=== PATIENT | female | born 1950 | race African-American/Black ===

== ENCOUNTER 2018-08-22 17:24 | Emergency (ER) | payer MEDICARE, OTHER ==
--- NOTE | 2018-08-22 18:45 | ER Document Report ---
ED Extremity Problem, Lower - General Chief Complaint: Foot Pain Stated Complaint: RIGHT FOOT PAIN Time Seen by Provider: 08/22/18 18:10 Mode of Arrival: Ambulatory Information source: Patient Notes: 67-year-old female presented to ED with complaint of pain to right foot. She states she fell about a month ago and the pain has moved from her knee to her foot. She thought she might have a blood clot in her foot but she said that her doctor told her that blood clots or not in your feet but in your legs. She asked that she please get x-ray of her foot and ankle to be sure that she did not have a broken bone. Patient denies any pain or tenderness to the calf or thigh. Patient is alert and oriented respirations was regular and unlabored and is able to walk with a steady gait. Stated is painful to walk on her right foot but that her leg does not hurt. TRAVEL OUTSIDE OF THE [place] IN LAST 30 DAYS: No - HPI Patient complains to provider of: Pain, Swelling Location: Ankle, Foot Occurred: Other - Month Onset/Duration: Intermittent Quality of pain: Achy, Pressure Severity: Moderate Pain Level: 4 Context: Fell - A month ago and had pain in her knee now she has pain in her foot with no other recent injury Recent injury: No Associated symptoms: Painful ambulation Exacerbated by: Hanging down, Movement, Walking Relieved by: Elevation - Related Data Allergies/Adverse Reactions: acetaminophen [From Percocet] Adverse Reaction (Verified 08/22/18 17:26) oxycodone HCl [From Percocet] Adverse Reaction (Verified 08/22/18 17:26) Past Medical History - General Information source: Patient - Social History Smoking Status: Never Smoker Cigarette use (# per day): No Chew tobacco use (# tins/day): No Smoking Education Provided: No Frequency of alcohol use: None Drug Abuse: None Lives with: Family Family History: Reviewed & Not Pertinent Patient has suicidal ideation: No Patient has homicidal ideation: No - Past Medical History Cardiac Medical History: Reports: Hx DVT, Hx Hypercholesterolemia, Hx Hypertension, Hx Peripheral Vascular Disease, Hx Pulmonary Embolism Pulmonary Medical History: Reports: None EENT Medical History: Reports: None Neurological Medical History: Reports: None Endocrine Medical History: Reports: Hx Hypothyroidism Renal/ Medical History: Reports: None Malignancy Medical History: Reports: None GI Medical History: Reports: Hx Gastroesophageal Reflux Disease, Hx Colonoscopy. Denies: Hx Endoscopy Musculoskeletal Medical History: Reports Hx Arthritis, Reports Hx Musculoskeletal Deformity, Reports Hx Musculoskeletal Trauma Skin Medical History: Reports None Psychiatric Medical History: Reports: None Traumatic Medical History: Reports: None Infectious Medical History: Reports: None Past Surgical History: Reports: Hx Cholecystectomy, Hx Hysterectomy, Hx Orthopedic Surgery - arthroscopic left and rt knee, Other - Cataracts - Immunizations Hx Diphtheria, Pertussis, Tetanus Vaccination: Yes Review of Systems - Review of Systems Notes: REVIEW OF SYSTEMS: CONSTITUTIONAL : Denies fever, chills, or sweats. Denies recent illness. EENT: Denies eye, ear, throat, or mouth pain or symptoms. Denies nasal or sinus congestion or discharge. Denies throat, tongue, or mouth swelling or difficulty swallowing. CARDIOVASCULAR: Denies chest pain. Denies palpitations or racing or irregular heart beat. Denies ankle edema. RESPIRATORY: Denies cough, cold, or chest congestion. Denies shortness of breath, difficulty breathing, or wheezing. GASTROINTESTINAL: Denies abdominal pain or distention. Denies nausea, vomiting , or diarrhea. Denies blood in vomitus, stools, or per rectum. Denies black, tarry stools. Denies constipation. GENITOURINARY: Denies difficulty urinating, painful urination, burning, frequency, blood in urine, or discharge. FEMALE GENITOURINARY: Denies vaginal bleeding, heavy or abnormal periods, irregular periods. Denies vaginal discharge or odor. MUSCULOSKELETAL: Denies back or neck pain or stiffness. Planes of pain to the right foot and ankle and swelling to both legs feet and ankles SKIN: Edema from the knee down on bilateral legs feet and ankle. Patient states this is chronic. She states the pain is just to the right foot and ankle but not to the calf. She denies any pain to palpation to the right calf or the left calf. There is discoloration to both lower extremities. Patient states she does have peripheral vascular disease. HEMATOLOGIC : Denies easy bruising or bleeding. LYMPHATIC: Denies swollen, enlarged glands. NEUROLOGICAL: Denies confusion or altered mental status. Denies passing out or loss of consciousness. Denies dizziness or lightheadedness. Denies headache. Denies weakness or paralysis or loss of use of either side. Denies problems with gait or speech. Denies sensory loss, numbness, or tingling. Denies seizures. PHYSICAL EXAMINATION: GENERAL: Well-appearing, well-nourished and in no acute distress. HEAD: Atraumatic, normocephalic. EYES: Pupils equal round and reactive to light, extraocular movements intact, conjunctiva are normal. ENT: Nares patent, oropharynx clear without exudates. Moist mucous membranes. NECK: Normal range of motion, supple without lymphadenopathy LUNGS: Breath sounds clear to auscultation bilaterally and equal. No wheezes rales or rhonchi. HEART: Regular rate and rhythm without murmurs ABDOMEN: Soft, nontender, nondistended abdomen. No guarding, no rebound. No masses appreciated. Female : deferred Musculoskeletal: Normal range of motion. No cyanosis. Patient has 3+ edema to bilateral lower extremities. Patient states this is normal for her. There is discoloration to both lower extremities and this is also normal for her. She states that she has peripheral vascular disease in both extremities. She she fell about a month ago and had pain in her right knee and now the pain is in her right foot and ankle. She denies any pain to her right knee or right calf. NEUROLOGICAL: Cranial nerves grossly intact. Normal speech, normal gait. Normal sensory, motor exams PSYCH: Normal mood, normal affect. SKIN: Warm, Dry, normal turgor, no rashes or lesions noted. Patient has discoloration to both lower extremities to include calves ankles and feet. Patient states this is normal for her. There is no redness inflammation or change in the appearance of her foot according to the patient. Right foot is tender to palpation with no open sores inflammation. PSYCHIATRIC: Denies anxiety or stress. Denies depression, suicidal ideation, or homicidal ideation. ALL OTHER SYSTEMS REVIEWED AND NEGATIVE. Dictation was performed using [employer] voice recognition software Physical Exam - Vital signs Vitals: Temp Pulse Resp BP Pulse Ox 97.9 F 64 16 165/68 H 97 08/22/18 17:30 08/22/18 17:30 08/22/18 17:30 08/22/18 17:30 08/22/18 17:30 Course - Re-evaluation Re-evalutation: 08/23/18 01:57 Right foot and ankle are tender to palpation. The x-rays are negative for any acute injuries. There is no signs of inflammation or infection to the right foot. Patient states the pain has been gradually developing. She states that it is worse after she has been up walking on her foot. She states when she elevates her foot or keeps her foot up off the floor does not hurt as much. She states she does have peripheral vascular disease and she has peripheral edema. She states that nobody is ever told her that she needed to keep her feet elevated except for her family. 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 She states when she is home she usually is sitting in a chair with her feet down. Patient was given instructions on elevation of her lower extremities at all times when she is not up walking or driving her bus. Patient was instructed to please follow-up with her primary doctor on Friday and to get a referral to her contracting support specialist if she continues to have pain in this right foot. Patient and family verbalized understanding and agreement with treatment plan. - Vital Signs Vital signs: Temp Pulse Resp BP Pulse Ox 98.0 F 54 L 16 141/71 H 99 08/22/18 20:43 08/22/18 20:43 08/22/18 20:43 08/22/18 20:43 08/22/18 20:43 - Diagnostic Test Radiology reviewed: Image reviewed, Reports reviewed Discharge - Discharge Clinical Impression: Pedal edema, Pain, foot, left, chronic Condition: Good Disposition: HOME, SELF-CARE Additional Instructions: Edema, Peripheral You have swelling in your legs. This is called peripheral edema. It can be caused by "leaky capillaries," inflammation, disease of the leg veins, or excess salt and water in your body. Edema may be a sign of heart, kidney, or liver disease. A medical evaluation can determine if there is a serious underlying cause for your edema. Avoid prolonged standing. If you must sit for a long time, occasionally get up and walk around or elevate your legs. Support stockings can be helpful in limiting swelling. Often diuretic or water pills are used to remove excess salt and water from your body. Call the doctor or return if you develop increased swelling, pain, or redness, shortness of breath, chest pain, or any other significant change. Please keep your feet elevated whenever you are sitting or laying. Your toes need to be above the nose to decrease the fluid in your feet. He states you know you have peripheral vascular disease the only way to return the fluid is to keep them elevated. These follow-up with your primary doctor on Friday and your contracting support specialist if your feet continue to hurt on Friday or Friday. It is very important that you keep your feet elevated. FOLLOW-UP CARE: If you have been referred to a physician for follow-up care, call the physician s office for an appointment as you were instructed or within the next two days. If you experience worsening or a significant change in your symptoms, notify the physician immediately or return to the Emergency Department at any time for re-evaluation. Forms: Elevated Blood Pressure, Return to Work
--- NOTE | 2018-08-22 20:12 | RADIOLOGY REPORT (SQ) ---
EXAM DESCRIPTION: FOOT RIGHT COMPLETE COMPLETED DATE/TIME: 08/22/2018 7:21 pm REASON FOR STUDY: pain and swelling COMPARISON: Concurrent ankle radiographs NUMBER OF VIEWS: Three views. TECHNIQUE: AP, lateral and oblique radiographic images acquired of the right foot. LIMITATIONS: None. FINDINGS: MINERALIZATION: Normal. BONES: No acute fracture. Alignment is normal. Mild 1st metatarsophalangeal joint space narrowing w ith small osteophytes. Mild dorsal osseous overgrowth of the intertarsal joints. No erosions. Then density is normal. A small plantar calcaneal enthesophyte. Os naviculare present. JOINTS: No effusions. SOFT TISSUES: No soft tissue swelling. No foreign body. OTHER: No other significant finding. IMPRESSION: No acute fracture or dislocation of the right foot. TECHNICAL DOCUMENTATION: JOB ID: [id number] [employer] All Rights Reserved Reading location - IP/workstation name: [email or web address]
--- NOTE | 2018-08-22 20:14 | RADIOLOGY REPORT (SQ) ---
EXAM DESCRIPTION: ANKLE RIGHT COMPLETE COMPLETED DATE/TIME: 08/22/2018 7:21 pm REASON FOR STUDY: pain and swelling COMPARISON: Concurrent foot radiograph NUMBER OF VIEWS: Three views. TECHNIQUE: AP, lateral, and oblique radiographic images acquired of the right ankle. LIMITATIONS: None. FINDINGS: MINERALIZATION: Normal. BONES: No acute fracture. Alignment is normal. Mild dorsal osseous overgrowth of the midfoot with p reserved joint spaces. Small plantar calcaneal enthesophyte. No erosions. JOINTS: No effusions. SOFT TISSUES: No soft tissue swelling. No foreign body. OTHER: Moderate soft tissue swelling. No radiopaque foreign body. No subcutaneous gas. IMPRESSION: Moderate soft tissue swelling of the ankle. No acute fracture or dislocation. TECHNICAL DOCUMENTATION: JOB ID: [id number] [employer]- All Rights Reserved Reading location - IP/workstation name: [email or web address]
[2018-08-22 20:44] VITALS: BP 141/71
== END 2018-08-22 20:50 | disposition home or self-care (01) ==
LOC: ER 17:24
DX: R60.9 Edema, unspecified (principal); M79.671 Pain in right foot; W19.XXXA Unspecified fall, initial encounter; E78.00 Pure hypercholesterolemia, unspecified; I10 Essential (primary) hypertension; Z88.6 Allergy status to analgesic agent; Z86.718 Personal history of other venous thrombosis and embolism; Z90.49 Acquired absence of other specified parts of digestive tract; Z90.710 Acquired absence of both cervix and uterus
CPT/HCPCS: 99283